=== PATIENT | male | born 1985 | race Caucasian/White ===

== ENCOUNTER → 2019-01-19 | Emergency (ER) | payer OTHER ==
[~2019-01-19] VITALS: Ht 177.8 cm; Wt 87.5 kg
[~2019-01-19] MED LIST: IBUP-1542 PO; KETOROLAC 30 MG INJ IV STA; SOD CHLORIDE 0.9% 1,000 ML IV STA
[2019-01-19 04:20] VITALS: Ht 177.8 cm; Wt 87.5 kg
--- NOTE | 2019-01-19 04:42 | ERD ---
ER Documentation Chief Complaint Chief Complaint bib self, cc: abd. pain x 3 hours, HPI 33-year-old male with history of gallstones presents with upper right quadrant pain for the past 3 hours. States that he was eating fried foods. States pain is currently 7 out of 10. States that he does not want strong pain medication. In addition, he denies any nausea, vomiting, diarrhea, fevers, chest pain, shortness of breath, palpitations, cough, dyspnea. ROS All systems reviewed and are negative except as per history of present illness. Medications Home Meds Active Scripts Ibuprofen* (Motrin*) 600 Mg Tab, 600 MG PO Q6, #30 TAB Prov:EARLENE KRUGER 01/19/19 Allergies Allergies: Coded Allergies: No Known Allergy (Unverified , 01/19/19) PMhx/Soc Medical and Surgical Hx: pt denies Surgical Hx Hx Cardiac Disorders: Yes (HEART CONDITION ) Hx Alcohol Use: Yes (former drinker) Hx Substance Use: No Hx Tobacco Use: No FmHx Family History: No diabetes, No coronary disease, No other Physical Exam Vitals Vital Signs Date Temp Pulse Resp B/P (MAP) Pulse Ox O2 O2 Flow FiO2 Time Delivery Rate 01/19/19 98.1 60 19 148/81 100 04:20 (103) Physical Exam Const: No acute distress Head: Atraumatic Eyes: Normal Conjunctiva ENT: Normal External Ears, Nose and Mouth. Neck: Full range of motion. No meningismus. Resp: Clear to auscultation bilaterally Cardio: Regular rate and rhythm, no murmurs Abd: Negative McBurney's. Patient able to jump up and down exam. Tenderness palpation in the upper right quadrant. Skin: No petechiae or rashes Back: No midline or flank tenderness Ext: No cyanosis, or edema Neur: Awake and alert Psych: Normal Mood and Affect Result Diagram: 01/19/1944901/19/19449 Results 24 hrs Laboratory Tests Test 01/19/19 04:50 White Blood Count 6.6 10^3/ul Red Blood Count 4.49 10^6/ul Hemoglobin 14.1 g/dl Hematocrit 40.5 % Mean Corpuscular Volume 90.2 fl Mean Corpuscular Hemoglobin 31.4 pg Mean Corpuscular Hemoglobin Concent 34.8 g/dl Red Cell Distribution Width 11.9 % Platelet Count 158 10^3/UL Mean Platelet Volume 12.7 fl Immature Granulocytes % 0.300 % Neutrophils % 57.1 % Lymphocytes % 31.9 % Monocytes % 7.4 % Eosinophils % 2.4 % Basophils % 0.9 % Nucleated Red Blood Cells % 0.0 /100WBC Immature Granulocytes # 0.020 10^3/ul Neutrophils # 3.8 10^3/ul Lymphocytes # 2.1 10^3/ul Monocytes # 0.5 10^3/ul Eosinophils # 0.2 10^3/ul Basophils # 0.1 10^3/ul Nucleated Red Blood Cells # 0.0 10^3/ul Urine Color YELLOW Urine Clarity CLEAR Urine pH 6.0 Urine Specific [place] 1.025 Urine Ketones NEGATIVE mg/dL Urine Nitrite NEGATIVE mg/dL Urine Bilirubin NEGATIVE mg/dL Urine Urobilinogen NEGATIVE mg/dL Urine Leukocyte Esterase NEGATIVE Mariya/ul Urine Hemoglobin NEGATIVE mg/dL Urine Glucose NEGATIVE mg/dL Urine Total Protein NEGATIVE mg/dl Sodium Level 142 mmol/L Potassium Level 3.8 mmol/L Chloride Level 101 mmol/L Carbon Dioxide Level 32 mmol/L Anion Gap 9 Blood Urea Nitrogen 10 mg/dl Creatinine 0.82 mg/dl Est Glomerular Filtrat Rate mL/min > 60 mL/min Glucose Level 91 mg/dl Calcium Level 9.4 mg/dl Total Bilirubin 0.4 mg/dl Direct Bilirubin 0.00 mg/dl Indirect Bilirubin 0.4 mg/dl Aspartate Amino Transf (AST/SGOT) 24 IU/L Alanine Aminotransferase (ALT/SGPT) 31 IU/L Alkaline Phosphatase 67 IU/L Total Protein 7.7 g/dl Albumin 4.6 g/dl Globulin 3.10 g/dl Albumin/Globulin Ratio 1.48 Lipase 147 U/L Current Medications Medications Dose Sig/Jethro Start Time Status Last (Trade) Ordered Route PRN Stop Time Admin Dose Reason Admin Sodium 1,000 ml @ Q1H STAT 01/19/19 DC 01/19/19 Chloride 1,000 mls/hr IV 04:36 01/19/19 04:55 05:35 Ketorolac 30 mg ONCE STAT 01/19/19 DC 01/19/19 Tromethamine IV 04:36 01/19/19 04:55 (Toradol) 04:38 Procedures/MDM MDM: Patient's ultrasound was positive for cholelithiasis. Patient's pain was successfully resolved with IV Toradol. Patient had no white count and LFTs and bilirubin within normal limits. All other labs within normal limits as well advised patient that he needs to refrain from eating fatty foods as this will exacerbate his condition. Patient advised to follow-up with his primary for surgical referral for possible cholecystectomy. I have low suspicion for acute coronary syndrome, AAA, mesenteric ischemia, lower lobe pneumonia, DKA, bowel perforation, cholecystitis, choledocholithiasis, ascending cholangitis, hepatic abscess, pancreatitis, PUD, splenic rupture, diverticulitis, pyelonephritis, nephrolithiasis, appendicitis, testicular torsion. At this time, patient is stable for discharge and outpatient management. I have instructed the patient to follow-up with his/her primary care physician in 1-2 days. I have discussed with the patient the possibility of needing to see a specialist for further workup and imaging studies if symptoms persist. I have instructed the patient to promptly return to the ER for any new or worsening symptoms including but not limited to increased pain, fever, nausea, vomiting, weakness or LOC. The patient and/or family expressed understanding of and agreement with this plan. All questions were answered. Home care instructions were provided. DISCLAIMER: Inadvertent spelling and grammatical errors are likely due to EHR/dictation software use and do not reflect on the overall quality of patient care. Also, please note that the electronic time recorded on this note does not necessarily reflect the actual time of the patient encounter. Departure Diagnosis: Primary Impression: Biliary colic Condition: Nataly EARLENE KRUGER Jan 19, 2019 04:42
[2019-01-19 07:14] VITALS: BP 120/69; PULSE 63; RESP 17
== END | disposition home or self-care (01) ==
LOC: FTE 04:14
DX: K80.50 Calculus of bile duct without cholangitis or cholecystitis without obstruction (principal)
CPT/HCPCS: 76705; 80053; 81003; 83690; 85025; J1885; J7030; 36415; 96374